=== PATIENT | female | born 1940 | race Caucasian/White ===

== ENCOUNTER 2019-06-28 11:17 | Emergency (ER) | payer MEDICARE, SELFPAY ==
--- NOTE | ~2019-06-28 | XR_ITS ---
XR hand LT min 3V 06/28/2019 11:44 Indication: Hand pain after fall Procedure: 4 views left hand Comparison: No prior studies for comparison. Findings: There is dorsal-ulnar dislocation of the fourth finger at the PIP joint. No fracture is cheyenne ntified. Osteopenia. There is an old ulnar styloid avulsion fracture. There is mild polyarticular ost eoarthritis. Impression: 1: Dislocation of the left fourth finger at the PIP joint. No fracture identified. Reviewed, dictated and finalized at location A. Impression: 1: Dislocation of the left fourth finger at the PIP joint. No fracture identifi ed.
[2019-06-28 11:32] VITALS: BP 157/59; PULSE 52; RESP 18; TEMP 37.2; O2SAT 100
--- NOTE | 2019-06-28 12:01 | ED.GENADULT ---
HPI - General Adult General Chief complaint: Extremity Injury, Upper Stated complaint: broken left ring finger Time Seen by Provider: 06/28/19 12:01 Source: patient and RN notes reviewed Mode of arrival: ambulatory Limitations: no limitations History of Present Illness HPI narrative: 78-year-old female presents with complaints of LT hand 3rd (middle) and 4th (ring) fingers with bruising, swelling, and tenderness for 1 day. Ibuprofen (last this morning approximately @ 09:30) with little relief. Ira says her RT leg has a muscle cramp and she fell out of the bathtub denies hitting head or loss of consciousness. Denies numbness or tingling. No weakness of finger(s). Denies fever or chills. Denies immobility. Exacerbation is movement and palpation of fingers. Relieving factor is rest. Dominant hand is RIGHT HAND. Denies break in skin or drainage. Denies headaches, weakness, fatigue, myalgia, or facial swelling. Denies chest pain or dyspnea. Denies cough, rhinorrhea, congestion, sore throat, nausea, vomiting, abdominal pain, and diarrhea. Tolerating po intake well. Denies recent traveling. Denies concerns for COVID-19 or exposures been home since [id number] order except for essential household needs and return home. Remains active. Some parts of this dictation were generated by voice recognition software and may contain typographical and/or grammatical inaccuracies. Related Data Home Medications Medication Instructions Recorded Confirmed amlodipine 2.5 mg tablet 2.5 mg PO DAILY 03/18/19 03/18/19 aspirin 81 mg tablet,delayed 81 mg PO DAILY 03/18/19 03/18/19 release atorvastatin 10 mg tablet 10 mg PO DAILY 03/18/19 03/18/19 clopidogrel 75 mg tablet 75 mg PO DAILY 03/18/19 03/18/19 furosemide 20 mg tablet 20 mg PO QAM 03/18/19 03/18/19 ibuprofen 200 mg capsule 200 mg PO Q6H PRN 03/18/19 03/18/19 isosorbide dinitrate 5 mg tablet 5 mg PO BID 03/18/19 03/18/19 metoprolol tartrate 25 mg tablet 25 mg PO DAILY 03/18/19 03/18/19 potassium 75 mg tablet mg PO 03/18/19 03/18/19 ranitidine HCl 75 mg tablet 75 mg PO DAILY 03/18/19 03/18/19 hydrochlorothiazide 25 mg PO BID 06/28/19 06/28/19 Allergies Allergy/AdvReac Type Severity Reaction Status Date / Time lidocaine Allergy Unknown unknown Verified 03/18/19 14:01 propoxyphene Allergy Unknown Unknown Verified 03/18/19 14:01 Review of Systems Review of Systems: Narrative: CONSTITUTIONAL: Denies fever, chills, sweats. EYES: Denies visual changes, redness, discharge. ENT: Denies rhinorrhea, congestion, sore throat, otalgia. CARDIOVASCULAR: Denies chest pain, palpitations, edema. RESPIRATORY: Denies dyspnea, wheezing, cough. GASTROINTESTINAL: Denies abdominal pain, nausea, vomiting, diarrhea. GENITOURINARY: Denies dysuria, hematuria, abnormal discharge. SKIN: Denies rash or itching. MUSCULOSKELETAL: Denies acute back pain or myalgia. Complains of LT hand 3rd (middle) and 4th (ring) fingers with bruising, swelling, and tenderness. NEUROLOGIC: Denies numbness or focal weakness. PSYCHIATRIC: Denies anxiety or depression. All systems reviewed & are unremarkable except as noted in HPI and below. [facility] Past Medical History Medical History (Updated 06/29/19 @ 00:00 by Background Dadomitilaon) Heart disease Hypercholesteremia Hypertension Osteoarthritis of knee Postmenopausal Vascular disease Surgical History Surgical History (Updated 06/28/19 @ 17:55 by SOPHIA Duenas) History of hip replacement Left and right hip. History of hysterectomy Hx of appendectomy Family History Family History (Updated 06/28/19 @ 17:53 by SOPHIA Duenas) Father Hypertension Throat cancer Mother Heart disease Social History Social History (Updated 06/28/19 @ 17:52 by SOPHIA Duenas) Smoking status: Never smoker Alcohol intake: never Substance use: never Living arrangements: alone Occupation/Education: retired Gender che[place]
--- NOTE | 2019-06-28 12:47 | PC.NURSE ---
tylenol 1 gram given po per order , unable to scan or hand chart on mAR
== END 2019-06-28 12:54 | disposition home or self-care (01) ==
PROVIDERS: Emergency Provider Nurse Practitioner Family; PCP Family Medicine
DX: S63.285A Dislocation of proximal interphalangeal joint of left ring finger, initial encounter (principal); E78.00 Pure hypercholesterolemia, unspecified; I10 Essential (primary) hypertension; M17.10 Unilateral primary osteoarthritis, unspecified knee; Z96.643 Presence of artificial hip joint, bilateral; W18.2XXA Fall in (into) shower or empty bathtub, initial encounter
CPT/HCPCS: 29130; 73130; 99213; G0463

== ENCOUNTER 2023-04-03 15:13 | Emergency (ER) | payer MEDICARE, SELFPAY ==
--- NOTE | ~2023-04-03 | XR_ITS ---
EXAMINATION: XR shoulder RT min 2V DATE: 04/03/2023 17:47 INDICATION: Right shoulder pain. TECHNIQUE: 4 views of right shoulder were obtained. COMPARISON: None. FINDINGS: Bone alignment is normal. No fracture. There is mild osteoarthritis of glenohumeral joint a nd severe osteoarthritis of acromioclavicular joint. IMPRESSION: 1. Polyarticular osteoarthritis. 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
--- NOTE | ~2023-04-03 | US_ITS ---
EXAMINATION: US venous doppler UE RT DATE: 04/03/2023 18:38 INDICATION: Right upper limb pain. TECHNIQUE: Grayscale ultrasound images without and with compression and Doppler ultrasound images of the right upper extremity veins were obtained. COMPARISON: None. FINDINGS: The visualized portions of the right internal jugular vein, subclavian vein, axillary vein, brachial veins, basilic vein, cephalic vein, radial vein, and ulnar vein are patent. IMPRESSION: 1. No deep venous thrombosis. 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
[2023-04-03] MEDS: diazePAM INJ (*CRX) 10 MG/2 ML SYRINGE IM (17:24)
--- NOTE | 2023-04-03 17:47 | ED.EXTPRO ---
HPI - Extremity Problem General Chief complaint: Extremity Problem,Nontraumatic Stated complaint: RUE pain Time Seen by Provider: 04/03/23 16:58 Source: patient Mode of arrival: ambulatory Limitations: no limitations History of Present Illness HPI Narrative: Patient is an 82-year-old female who presents to the ED with report of right arm and shoulder pain. Patient reports having pain in her R shoulder and R upper arm since the middle of January. She saw her primary care doctor at that time and was told it may be a rotator cuff injury. Reports having persistent and worsening pain since then. Denies any new injury. She has been taking Tylenol for the pain. She was prescribed oxycodone and Tylenol with codeine, but states she became sick with these medications and was unable to tolerate them. Denies numbness/tingling, CP, SOB, fevers, wounds. Related Data Home Medications Medication Instructions Recorded Confirmed amlodipine 2.5 mg tablet 2.5 mg PO DAILY 03/18/19 03/18/19 aspirin 81 mg tablet,delayed 81 mg PO DAILY 03/18/19 03/18/19 release (Adult Low Dose Aspirin) atorvastatin 10 mg tablet 10 mg PO DAILY 03/18/19 03/18/19 clopidogrel 75 mg tablet (Plavix) 75 mg PO DAILY 03/18/19 03/18/19 furosemide 20 mg tablet 20 mg PO QAM 03/18/19 03/18/19 ibuprofen 200 mg capsule 200 mg PO Q6H PRN 03/18/19 03/18/19 isosorbide dinitrate 5 mg tablet 5 mg PO BID 03/18/19 03/18/19 metoprolol tartrate 25 mg tablet 25 mg PO DAILY 03/18/19 03/18/19 potassium 75 mg tablet mg PO 03/18/19 03/18/19 ranitidine HCl 75 mg tablet 75 mg PO DAILY 03/18/19 03/18/19 (Heartburn Relief (ranitidine)) hydrochlorothiazide 25 mg tablet 25 mg PO BID 06/28/19 06/28/19 Allergies Allergy/AdvReac Type Severity Reaction Status Date / Time lidocaine Allergy Unknown unknown Verified 03/18/19 14:01 propoxyphene Allergy Unknown Unknown Verified 03/18/19 14:01 Review of Systems Review of Systems: CONSTITUTIONAL: Denies fever, chills, or sweats. CARDIOVASCULAR: Denies chest pain. RESPIRATORY: Denies cough or dyspnea. MUSCULOSKELETAL: See HPI. NEUROLOGIC: Denies headache, dizziness, numbness, or weakness. All systems reviewed & are unremarkable except as noted in HPI and below [facility] Past Medical History Medical History Heart disease Hypercholesteremia Hypertension Osteoarthritis of knee Postmenopausal Vascular disease Surgical History Surgical History History of hip replacement Left and right hip. History of hysterectomy Hx of appendectomy Family History Family History Father Hypertension Throat cancer Mother Heart disease Social History Social History Smoking status: Never smoker Alcohol intake: never Substance use: never Living arrangements: alone Occupation/Education: retired Gender identity (if verbalized by the patient): Female Exam Narrative: GENERAL: Elderly, thin, non-toxic, in no acute distress. HEAD: Normocephalic, atraumatic. RESPIRATORY: Airway patent, respirations nonlabored. Clear to auscultation bilaterally, no rales, rhonchi, wheezing. CARDIOVASCULAR: Regular rate and rhythm without murmurs, rubs, or gallops. Radial pulses 2+ bilaterally. MUSCULOSKELETAL: Moves all extremities. No gross deformities. Essentially full range of motion of right shoulder joint, patient moving arm around in all directions on exam, no significant appreciable pain with movement. Tenderness to palpation along lateral and posterior right shoulder joint. No midline cervical or thoracic spinal tenderness. SKIN: Warm, dry, normal color. NEURO: A&O X3. Speech clear. Cranial nerves II-XII grossly intact. Steady gait. No ataxic movements. 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 Sensation intact throughout right upper extremity. PSYCHIATRIC: Anxious, tearful. Normal interaction. Course Vital Signs Vital signs: Vital Signs Temperature 97.9 F 04/03/23 18:59 Pulse Rate 79 04/03/23 18:59 Respiratory Rate 20 04/03/23 18:59 Blood Pressure 180/90 H 04/03/23 18:59 Pulse Oximetry 100 04/03/23 18:59 Temperature 97.9 F 04/03/23 18:59 Pulse Rate 79 04/03/23 18:59 Respiratory Rate 20 04/03/23 18:59 Blood Pressure 180/90 H 04/03/23 18:59 Pulse Oximetry 100 04/03/23 18:59 MDM - Extremity (Nontraumatic) MDM Narrative Medical decision making narrative: Patient presented to ED with several month history of nontraumatic right shoulder/upper arm pain. Vital signs stable upon arrival, though patient very anxious and tearful. Patient neurovascularly intact. No evidence of weakness, sensation changes, good pulses, no spinal tenderness. Exam fairly unremarkable. X-ray of right shoulder showing osteoarthritis. No acute fracture. Venous Doppler US RUE negative for DVT. Discussed imaging results with patient. Discussed possibility of rotator injury, MSK pain. Advised patient will need to follow-up with orthopedics for further evaluation. Patient given sling in the ED. Feeling better with supportive therapy. Will discharge with a short course of tramadol. Patient in agreement with plan. She feels comfortable w/ discharge home. She has been able to perform all ADLs and live independently. Does not feel she requires additional help. Given return precautions. Discharged in stable condition. Medical Records Attestation: I reviewed the patient's medical records. Imaging Data Attestation: I personally reviewed and interpreted this imaging study as follows: Radiologist's impression: ITS Impressions Shoulder X-Ray 04/03/23 17:48 IMPRESSION: 1. Polyarticular osteoarthritis. Venous Doppler Study 04/03/23 18:39 IMPRESSION: 1. No deep venous thrombosis. Discharge Plan Discharge Clinical Impression: Right shoulder pain Qualifiers: Chronicity: acute Qualified Code(s): M25.511 - Pain in right shoulder Osteoarthritis of right shoulder Qualifiers: Osteoarthritis type: unspecified Qualified Code(s): M19.011 - Primary osteoarthritis, right shoulder Patient Disposition: Home, Self-Care Condition: Stable Instructions: Antibiotic Form, Rotator Cuff Injury (ED), How to Use a Sling (ED), Shoulder Sprain (ED), Shoulder Pain (ED) Additional Instructions: Utilize sling as needed for comfort and support. Recommend frequent icing to the right shoulder. Continue Tylenol as needed for pain. Utilize tramadol as needed for more severe pain. Use caution when taking this as it may cause slight sedation. Follow-up with your primary care doctor and orthopedics for further evaluation. Return to the ED if you experience worsening or severe pain, injury to shoulder/arm, numbness, chest pain, difficulty breathing, or any other symptoms of concern. Prescriptions: New tramadol 50 mg tablet 25 mg PO Q6H PRN (Reason: pain) Qty: 10 0RF No Action hydrochlorothiazide 25 mg Tablet 25 mg PO BID acetaminophen [Tylenol Extra Strength] 500 mg tablet 1,000 mg PO TID PRN (Reason: pain) 15 Days Qty: 30 0RF amlodipine 2.5 mg tablet 2.5 mg PO DAILY aspirin [Adult Low Dose Aspirin] 81 mg tablet,delayed release (DR/EC) 81 mg PO DAILY atorvastatin 10 mg tablet 10 mg PO DAILY furosemide 20 mg tablet 20 mg PO QAM ibuprofen 200 mg capsule 200 mg PO Q6H PRN isosorbide dinitrate 5 mg tablet 5 mg PO BID Rx Instructions: allow nitrate-free interval of 12-14 hrs per 24-hr period metoprolol tartrate 25 mg tablet 25 mg PO DAILY clopidogrel [Plavix] 75 mg tablet 75 mg PO DAILY potassium 75 mg tablet PO ranitidine HCl [Heartburn Relief (ranitidine)] 75 mg tablet 75 mg PO DAILY methylprednisolone [Medrol (Mohit)] 4 mg tablets,dose pack See Rx Instructions PO PER PKG DIR Qty: 1 0RF Rx Instructions: PO PER PKG DIR Follow-up/Referrals: Efrain Lezama MD [Physician] - (ORTHOPEDICS) PHYSICIAN NOT ON STAFF,NONSTAFF [Non-Staff] - Time of Disposition: 19:01
[2023-04-03] MEDS: ONDANSETRON HCL ODT 4 MG TABLET PO (18:35)
[2023-04-03] MEDS: traMADol HCL (*CRX) 25 MG TABLET PO (18:35)
[2023-04-03 18:59] VITALS: BP 180/90; PULSE 79; RESP 20; TEMP 36.6; O2SAT 100
== END 2023-04-03 19:13 | disposition home or self-care (01) ==
PROVIDERS: Emergency Provider Physician Assistant
DX: M19.011 Primary osteoarthritis, right shoulder (principal); M79.621 Pain in right upper arm; I10 Essential (primary) hypertension
CPT/HCPCS: 73030; 93971; 96372; 99284; A4565; A9270; J3360

== ENCOUNTER 2023-05-07 13:47 | Outpatient (CLI) | payer MEDICARE, SELFPAY ==
--- NOTE | ~2023-05-07 | XR_ITS ---
Right Shoulder Technique: AP and scapular Y views were obtained. Clinical History: Pain Findings: No fracture or dislocation is seen. Osseous alignment is anatomic. The glenohumeral and acr omioclavicular joint spaces are preserved. Soft tissues are unremarkable. Impression: Unremarkable right shoulder radiographs. Reviewed, dictated and finalized at [facility]. Impression: Unremarkable right shoulder radiographs.
--- NOTE | ~2023-05-07 | XR_ITS ---
Right Humerus Technique: AP and lateral views were obtained. Clinical History: Pain Findings: No fracture or dislocation is seen. Osseous alignment is anatomic. Visualized joint spaces are grossly preserved. Soft tissues are unremarkable. Impression: Unremarkable examination. No fracture or dislocation. Reviewed, dictated and finalized at location . Impression: Unremarkable examination. No fracture or dislocation.
== END 2023-05-07 13:48 | disposition home or self-care (01) ==
DX: M25.511 Pain in right shoulder (principal)
CPT/HCPCS: 73030; 73060